=== PATIENT | female | born 1980 ===

== ENCOUNTER 2021-07-02 11:49 | Emergency (ER) | payer OTHER ==
[~2021-07-02] VITALS: Ht 162.6 cm; Wt 90.9 kg
[2021-07-02 17:25] VITALS: BP 134/65
[2021-07-02] MEDS ORDERED: ACETAMINOPHEN 325 MG TABLET PO ONE (18:30)
[2021-07-02] MEDS ORDERED: IBUPROFEN 400 MG TABLET PO ONE (18:30)
[2021-07-02] MEDS ORDERED: LIDOCAINE 5% TRANSDERMAL PATCH TD ONE (18:30)
== END 2021-07-02 19:29 | disposition home or self-care (01) ==
LOC: EMS 11:53
DX: M79.652 Pain in left thigh (principal); M54.5 Low back pain; G43.909 Migraine, unspecified, not intractable, without status migrainosus
CPT/HCPCS: 99284; Z7502; Z7610